=== PATIENT | female | born 1960 | race Caucasian/White ===

== ENCOUNTER 2018-04-14 15:05 | Emergency (ER) | payer SELFPAY ==
[~2018-04-14] VITALS: Ht 162.6 cm; Wt 68.9 kg
[2018-04-14 15:16] VITALS: Ht 162.6 cm; Wt 68.9 kg
[2018-04-14 16:57] VITALS: BP 111/74
== END 2018-04-14 16:57 | disposition home or self-care (01) ==
LOC: ED 15:05
DX: M25.511 Pain in right shoulder (principal)
CPT/HCPCS: J1885; J3010